=== PATIENT | female | born 1955 | race African-American/Black ===

== ENCOUNTER 2017-08-11 22:46 | Emergency (ER) | payer MEDICAID, OTHER ==
[~2017-08-11] VITALS: Ht 162.6 cm; Wt 81.0 kg
[2017-08-11] MEDS ORDERED: ACETAMINOPHEN 325MG TABLET PO STA (23:19)
[2017-08-11] MEDS ORDERED: AZITHROMYCIN 250 MG TABLET PO ONE (23:30)
[2017-08-12 00:39] VITALS: BP 128/75
== END 2017-08-12 00:39 | disposition home or self-care (01) ==
LOC: ER 22:46
DX: J32.9 Chronic sinusitis, unspecified (principal); J44.9 Chronic obstructive pulmonary disease, unspecified; F17.200 Nicotine dependence, unspecified, uncomplicated
CPT/HCPCS: 71010; 87804; 99284